=== PATIENT | male | born 1975 | race Hispanic/Latino ===

== ENCOUNTER 2019-01-11 13:14 | Emergency (ER) | payer OTHER | END 2019-01-11 13:49 | disposition home or self-care (01) | LOC: EDH 13:14 | DX: S89.92XA Unspecified injury of left lower leg, initial encounter (principal); G89.29 Other chronic pain; M25.562 Pain in left knee; X50.1XXA Overexertion from prolonged static or awkward postures, initial encounter; Y93.89 Activity, other specified; Y92.89 Other specified places as the place of occurrence of the external cause; Y99.8 Other external cause status | CPT/HCPCS: 99281 ==

== ENCOUNTER 2019-04-28 06:59 | Day surgery (SDC) | payer OTHER ==
[2019-04-27 16:09] VITALS: BP 142/100
[2019-04-27 16:10] LABS: BASOPHILS % (AUTO) 0.6 % (0.0-5.0); EOSINOPHILS % (AUTO) 1.3 % (0.0-8.0); HEMATOCRIT 49.8 % (42-54); LYMPHOCYTES % (AUTO) 35.2 % (21.0-51.0); MEAN CORPUSCULAR HEMOGLOBIN 29.8 pg (27.0-33.0); MEAN CORPUSCULAR HGB CONC 33.9 g/dL (32.0-36.0); MEAN CORPUSCULAR VOLUME 87.8 fL (79-99); MONOCYTES % (AUTO) 7.4 % (3.0-13.0); NEUTROPHILS % (AUTO) 55.3 % (40.0-77.0); PLATELET COUNT (AUTO) 266 K/uL (130-400); RED BLOOD CELL COUNT(AUTO) 5.67 MIL/uL (4.50-6.20); RED CELL DISTRIBUTION WIDTH 12.4 % (11.0-15.5); WHITE BLOOD COUNT (AUTO) 8.5 K/uL (4.8-10.8)
[2019-04-27 16:21] LABS: CREATININE 0.9 mg/dL (0.5-1.5)
[~2019-04-28] VITALS: Ht 188 cm; Wt 104.3 kg
[2019-04-28] VITALS (17 sets, daily range): BP systolic 86–154; BP diastolic 47–111
[2019-04-28] MEDS: CEFAZOLIN SODIUM 1 GM VIAL IVP SCH ×2 (07:30→08:45)
[2019-04-28] MEDS ORDERED: SODIUM CHLORIDE 0.9% 1000ML 1,000 ML IV ONE (07:37)
[2019-04-28] MEDS ORDERED: BUPIVACAINE/EPI/PF 0.25% 30ML VIAL IJ ONE (08:34)
[2019-04-28] MEDS ORDERED: MIDAZOLAM HCL 1 MG/ML 2ML VIAL ONE (08:36)
[2019-04-28] MEDS ORDERED: DEXAMETHASONE SOD PHOSPHATE 10MG/ML 1ML VIAL ONE (08:36)
[2019-04-28] MEDS ORDERED: LIDOCAINE PF 2% 5ML ABBOJECT ONE (08:36)
[2019-04-28] MEDS ORDERED: PROPOFOL 10 MG/ML 20ML VIAL IV ONE (08:36)
[2019-04-28] MEDS ORDERED: ONDANSETRON HCL 4 MG/2 ML VIAL ONE (08:36)
[2019-04-28] MEDS ORDERED: ROCURONIUM 10MG/1ML SYR 10 MG/ML ML ONE (08:37)
[2019-04-28] MEDS ORDERED: FENTANYL CITRATE PF 50 MCG/1 ML 2ML VIAL ONE ×2 (08:37→09:09)
[2019-04-28] MEDS ORDERED: ACET1TAB12 PO ×2 (10:38→10:43)
[2019-04-28] MEDS ORDERED: NAPR-1192 PO (10:43)
[2019-04-28] MEDS ORDERED: CEPH500B PO (10:43)
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
== END 2019-04-28 12:30 | disposition home or self-care (01) ==
LOC: DAH 06:59
PROVIDERS: ATTEND Orthopaedic Surgery
DX: S83.242A Other tear of medial meniscus, current injury, left knee, initial encounter (principal); F41.9 Anxiety disorder, unspecified; E66.9 Obesity, unspecified; M25.562 Pain in left knee; Z68.29 Body mass index [BMI] 29.0-29.9, adult; X58.XXXA Exposure to other specified factors, initial encounter; Y93.89 Activity, other specified; Y92.89 Other specified places as the place of occurrence of the external cause; Y99.8 Other external cause status; Z79.899 Other long term (current) drug therapy; Z98.890 Other specified postprocedural states; Z82.49 Family history of ischemic heart disease and other diseases of the circulatory system
CPT/HCPCS: 29882; 36415; 80048; 85025; A4213; A4215; A4221; A4222; A4223; A4606; A4649 ×3; A4663; A4930; A5120; A6223; J0690; J1100; J2001; J2250; J2405; J2704; J3010 ×2; J3490; J7030 ×2